=== PATIENT | male | born 1990 | race Two or more races ===

== ENCOUNTER 2021-12-29 00:45 | Inpatient (IN) | payer MEDICAID ==
[~2021-12-29] VITALS: Ht 177.8 cm; Wt 77.1 kg
[2021-12-29] MEDS ORDERED: IV NS 0.9% 500 ML IV ONE (01:00)
[2021-12-29] MEDS ORDERED: MORPHINE SULFATE INJ 2 MG/ML DISP.SYRIN IV ONE (01:00)
[2021-12-29] MEDS ORDERED: MORPHINE SULFATE INJ 4 MG/ML DISP.SYRIN ONE (01:03)
[2021-12-29 01:27] LABS: BASOPHILS # (AUTO) 0.2 K/uL (0.0-0.2); BASOPHILS % (AUTO) 1.2 % (0.0-2.0); EOSINOPHILS % (AUTO) 2.6 % (0.0-6.0); HEMATOCRIT 48 % (39-51); HEMOGLOBIN 16.2 g/dL (13.5-17.5); LYMPHOCYTES # (AUTO) 3.5 K/uL (0.8-4.8); LYMPHOCYTES % (AUTO) 24.6 % (20.0-44.0); MEAN CORPUSCULAR HGB CONC 34 g/dl (31.0-36.0); MEAN CORPUSCULAR VOLUME 92 fL (80-96); MONOCYTES # (AUTO) 0.9 K/uL (0.1-1.30); MONOCYTES % (AUTO) 6.4 % (2.0-12.0); NEUTROPHILS # (AUTO) 9.4 K/uL (1.8-8.9); NEUTROPHILS % (AUTO) 65.2 % (43.0-81.0); PLATELET COUNT (AUTO) 268 K/uL (150-450); RED BLOOD CELL COUNT(AUTO) 5.18 MIL/uL (4.5-6.0); WHITE BLOOD COUNT (AUTO) 14.4 K/uL (4.3-11.0)
[2021-12-29 01:42] LABS: CALCIUM, SERUM 9.5 mg/dL (8.5-10.1); CARBON DIOXIDE 22 mmol/L (21-32); CHLORIDE 103 mmol/L (98-107); CREATININE 1.2 mg/dL (0.6-1.3); GLUCOSE 110 mg/dL (74-106); UREA NITROGEN, BLOOD 7 mg/dL (7-18)
[2021-12-29 01:45] LABS: SODIUM SERUM 140 mmol/L (136-145)
[2021-12-29 01:52] LABS: POTASSIUM 2.7 mmol/L (3.5-5.1)
[2021-12-29] MEDS ORDERED: ONDANSETRON HCL/PF 4 MG/2 ML VIAL ONE (01:58)
[2021-12-29] MEDS ORDERED: POTASSIUM CHLORIDE 20 MEQ TAB.PRT.SR PO ONE ×2 (01:58→02:00)
[2021-12-29] MEDS ORDERED: ONDANSETRON HCL/PF 4 MG/2 ML VIAL IV ONE (02:00)
[2021-12-29] MEDS ORDERED: Magnesium 1 GM/2 ML VIAL IV ONE (02:30)
[2021-12-29] MEDS ORDERED: Magnesium 1GM/D5W 100ML PREMIX 200 ML IV ONE (02:35)
[2021-12-29] MEDS ORDERED: MAG HYDROX/AL HYDROX/SIMETH 30 ML UDC PO PRN (03:00)
[2021-12-29] MEDS ORDERED: ONDANSETRON HCL/PF 4 MG/2 ML VIAL IVP PRN (03:00)
[2021-12-29] MEDS ORDERED: MAGNESIUM HYDROXIDE 30 ML UDC PO PRN (03:00)
[2021-12-29] MEDS ORDERED: Z GUARD REMEDY 4 OZ OINT TP PRN (03:00)
[2021-12-29] MEDS ORDERED: Magnesium 1GM/D5W 100ML PREMIX PIGGYBACK IV ONE (03:00)
[2021-12-29] MEDS ORDERED: HYDROCODONE/APAP 10/325MG TABLET PO PRN (03:00)
[2021-12-29] MEDS ORDERED: ACETAMINOPHEN 325 MG TABLET PO PRN (03:00)
[2021-12-29] MEDS ORDERED: ZOLPIDEM TARTRATE 5 MG TABLET PO PRN (03:00)
[2021-12-29] MEDS ORDERED: KETOROLAC TROMETHAMINE INJ 30 MG/ML VIAL IV ONE (04:00)
[2021-12-29] MEDS ORDERED: KETOROLAC TROMETHAMINE INJ 30 MG/ML VIAL ONE (04:01)
[2021-12-29] MEDS: IV 1/2NS 1000 ML 1,000 ML IV PRN ×2 (06:08→18:03)
[2021-12-29] MEDS: POTASSIUM CHLORIDE 20 MEQ TAB.PRT.SR PO SCH ×5 (10:16→13:23)
[2021-12-29 12:55] LABS: CALCIUM, SERUM 8.3 mg/dL (8.5-10.1); POTASSIUM 3.7 mmol/L (3.5-5.1)
[2021-12-29] MEDS ORDERED: POTASSIUM CHLORIDE 20 MEQ TAB.PRT.SR PO SCH (14:30)
[2021-12-29 20:00] VITALS: BP 118/75
[2021-12-29 23:30] VITALS: BP 115/65
[2021-12-30 07:29] LABS: BASOPHILS # (AUTO) 0.1 K/uL (0.0-0.2); EOSINOPHILS % (AUTO) 9.3 % (0.0-6.0); HEMATOCRIT 41 % (39-51); HEMOGLOBIN 13.8 g/dL (13.5-17.5); LYMPHOCYTES % (AUTO) 20.9 % (20.0-44.0); MEAN CORPUSCULAR HGB CONC 33 g/dl (31.0-36.0); MEAN CORPUSCULAR VOLUME 94 fL (80-96); MONOCYTES # (AUTO) 0.8 K/uL (0.1-1.30); MONOCYTES % (AUTO) 7.8 % (2.0-12.0); PLATELET COUNT (AUTO) 214 K/uL (150-450); RED BLOOD CELL COUNT(AUTO) 4.42 MIL/uL (4.5-6.0); WHITE BLOOD COUNT (AUTO) 9.8 K/uL (4.3-11.0)
[2021-12-30 08:13] LABS: CALCIUM, SERUM 8.8 mg/dL (8.5-10.1); PHOSPHORUS 3.8 mg/dL (2.5-4.9); POTASSIUM 4.1 mmol/L (3.5-5.1)
[2021-12-30 08:34] VITALS: BP 112/68
== END 2021-12-30 14:07 | disposition home or self-care (01) | DRG 425 ==
LOC: ER 00:52 → TRANSITION 04:42 → TELE 07:50
PROVIDERS: ADMIT Nurse Practitioner Acute Care; ATTEND Nurse Practitioner Acute Care
DX: E87.6 Hypokalemia (principal); N17.0 Acute kidney failure with tubular necrosis; R00.0 Tachycardia, unspecified; E87.2 Acidosis; E83.42 Hypomagnesemia; Z20.822 Contact with and (suspected) exposure to COVID-19; I10 Essential (primary) hypertension; D75.1 Secondary polycythemia; Y90.1 Blood alcohol level of 20-39 mg/100 ml; F10.988 Alcohol use, unspecified with other alcohol-induced disorder
CPT/HCPCS: 36415; 71045-TC; 80048-TC; 80061-TC; 83735-TC; 84100-TC; 84484-TC; 85025-TC; 85378-TC; 87081-TC; 93307-TC; C9803; G0378; G0480; J1885; J2270; J2405; J3475; J3490; J7040

== ENCOUNTER 2022-02-14 19:48 | Emergency (ER) | payer MEDICAID ==
[~2022-02-14] VITALS: Ht 167.6 cm; Wt 72.6 kg
--- NOTE | 2022-02-14 20:20 | NUR ---
BIBS C/O CP & SOB SINCE 12PM. SEEN AND TREATED AT ER EARLIER TODAY AND SENT HOME NOW BACK WITH SAME COMPLAINT. PT AOX4. HOOKED TO MONITOR AND PULSE OX. O2 SAT AT 100% ON ROOM AIR.
[2022-02-14] MEDS ORDERED: KETOROLAC TROMETHAMINE INJ 30 MG/ML VIAL IM ONE (20:30)
[2022-02-14] MEDS ORDERED: LORAZEPAM INJ 2 MG/ML VIAL IM ONE (20:30)
[2022-02-14] MEDS ORDERED: KETOROLAC TROMETHAMINE INJ 30 MG/ML VIAL ONE (20:33)
[2022-02-14] MEDS ORDERED: LORAZEPAM INJ 2 MG/ML VIAL ONE (20:34)
[2022-02-14] MEDS ORDERED: ESCI5TAB PO (21:37)
[2022-02-14] MEDS ORDERED: LORA-259 PO (21:37)
[2022-02-14 21:42] VITALS: BP 125/78
--- NOTE | 2022-02-14 21:42 | NUR ---
Patient discharged to home in stable condition. Written and verbal after care instructions given. Patient verbalizes understanding of instruction.
== END 2022-02-14 21:43 | disposition home or self-care (01) ==
LOC: ER 20:13
DX: F41.9 Anxiety disorder, unspecified (principal); R07.89 Other chest pain; I10 Essential (primary) hypertension; Z88.0 Allergy status to penicillin; Z79.899 Other long term (current) drug therapy
CPT/HCPCS: 99284; 71045; 96372 ×2; 93005 ×2; J2060; J1885